=== PATIENT | male | born 1975 | race Caucasian/White ===

== ENCOUNTER 2022-08-13 02:22 | Emergency (ER) | payer SELFPAY ==
[~2022-08-13] VITALS: Ht 175.3 cm; Wt 80.0 kg
[2022-08-13 03:32] LABS: BASOPHILS % 0.3 % (0.0-2.0); HEMATOCRIT. 43.2 % (42.0-52.0); HEMOGLOBIN. 14.6 g/dL (14.0-18.0); LYMPHOCYTES % 43.4 % (20.0-50.0); MEAN CORPUSCULAR HEMOGLOBIN 31.1 pg (28.0-32.0); MEAN CORPUSCULAR VOLUME 92.3 fL (80.0-94.0); MEAN PLATELET VOLUME 7.8 fl (7.4-10.4); MONOCYTES % 10.2 % (2.0-8.0); NEUTROPHILS % 43.1 % (40.0-76.0); PLATELET 259 x1000/uL (130-400); RED BLOOD CELL COUNT 4.68 mill/uL (4.7-6.1); RED CELL DISTRIBUTION WIDTH 14.3 % (11.6-14.6)
[2022-08-13 03:39] LABS: CHLORIDE 106 mEq/L (98-107)
[2022-08-13 03:47] LABS: ETHANOL BLOOD 254 mg/dL
[2022-08-13 04:58] VITALS: BP 133/85
== END 2022-08-13 04:59 | disposition home or self-care (01) ==
LOC: ER 02:22
DX: F10.129 Alcohol abuse with intoxication, unspecified (principal); Y90.8 Blood alcohol level of 240 mg/100 ml or more
CPT/HCPCS: 36415; 80053; 80320; 85025; 99283; G0480

== ENCOUNTER 2023-04-06 00:43 | Emergency (ER) | payer MEDICAID ==
[~2023-04-06] VITALS: Ht 170.2 cm; Wt 82.0 kg
[2023-04-06 02:50] VITALS: BP 112/62
== END 2023-04-06 02:59 | disposition home or self-care (01) ==
LOC: ER 00:43
DX: G93.40 Encephalopathy, unspecified (principal); T51.0X1A Toxic effect of ethanol, accidental (unintentional), initial encounter; Y92.9 Unspecified place or not applicable
CPT/HCPCS: 99283

== ENCOUNTER 2024-10-18 16:25 | Inpatient (IN) | payer SELFPAY ==
[~2024-10-18] VITALS: Ht 177.8 cm; Wt 91.6 kg
[~2024-10-18 16:25] MED LIST: ZOLPIDEM TARTRATE 5MG TABLET PO PRN
[2024-10-18] MEDS: ASPIRIN 81MG TABLET PO ONE (17:29)
[2024-10-18 17:34] LABS: BASOPHILS % 0.6 % (0.0-2.0); HEMATOCRIT. 40.5 % (42.0-52.0); HEMOGLOBIN. 13.8 g/dL (14.0-18.0); LYMPHOCYTES % 44.4 % (20.0-50.0); MEAN CORPUSCULAR HEMOGLOBIN 32.1 pg (28.0-32.0); MEAN CORPUSCULAR VOLUME 94.4 fL (80.0-94.0); MEAN PLATELET VOLUME 8.3 fl (7.4-10.4); MONOCYTES % 9.7 % (2.0-8.0); NEUTROPHILS % 41.3 % (40.0-76.0); PLATELET 250 x1000/uL (130-400); RED BLOOD CELL COUNT 4.29 mill/uL (4.7-6.1); RED CELL DISTRIBUTION WIDTH 14.2 % (11.6-14.6); WHITE BLOOD COUNT 4.5 x1000/uL (4.5-11.0)
[2024-10-18 17:45] LABS: CHLORIDE 107 mEq/L (98-107); POTASSIUM 3.9 mEq/L (3.5-5.1); SODIUM 144 mEq/L (136-145)
[2024-10-18 17:46] LABS: CARBON DIOXIDE 25 mEq/L (21-32)
[2024-10-18 17:47] LABS: CALCIUM 8.8 mg/dL (8.7-10.4)
[2024-10-18 17:51] LABS: CREATININE 0.9 mg/dL (0.6-1.3); GLUCOSE 109 mg/dL (70-105); UREA NITROGEN BLOOD 14 mg/dL (9-23)
[2024-10-18 17:52] LABS: ETHANOL BLOOD 298 mg/dL (<10)
[2024-10-18 17:54] LABS: TROPONIN I HIGH SENSITIVITY < 4 ng/L (3.0-53)
[2024-10-18 21:29] LABS: TROPONIN I HIGH SENSITIVITY < 4 ng/L (3.0-53)
[2024-10-18] MEDS ORDERED: ONDANSETRON HCL 4MG/2ML INJ IV PRN (23:00)
[2024-10-18] MEDS ORDERED: KETOROLAC 15MG/ML VIAL IV PRN (23:00)
[2024-10-18] MEDS ORDERED: GUAIFENESIN 200MG/10ML SUGAR FREE UDC PO PRN (23:00)
[2024-10-18] MEDS ORDERED: NITROGLYCERIN 0.4MG TABLET SL SL PRN (23:00)
[2024-10-18] MEDS ORDERED: DOCUSATE SODIUM 100MG CAPSULE PO PRN (23:00)
[2024-10-18] MEDS ORDERED: ACETAMINOPHEN 325MG TABLET PO PRN ×2 (23:00)
[2024-10-18] MEDS ORDERED: CLONIDINE 0.1MG TABLET PO PRN (23:00)
[2024-10-18] MEDS ORDERED: MAGNESIUM/ALUMINUM HYDROXIDE/SIMETHICONE 30ML UDC PO PRN (23:00)
[2024-10-18] MEDS ORDERED: IPRATROPIUM/ALBUTEROL 0.5-3(2.5)MG/3ML NEB NEB PRN (23:00)
[2024-10-19 00:12] LABS: IRON 145 ug/dL (65-175); TRIGLYCERIDE 557 mg/dL (0-150)
[2024-10-19 00:13] LABS: LDL CHOLESTEROL 111 mg/dL (5-100)
[2024-10-19 00:14] LABS: CHOLESTEROL 218 mg/dL (<200); HDL CHOLESTEROL 68 mg/dL (>55)
[2024-10-19 00:15] LABS: TOTAL IRON BINDING CAPACITY 103 ug/dl (250-425)
[2024-10-19 00:17] LABS: FOLIC ACID (FOLATE) SERUM 5.27 ng/mL (>5.38); VITAMIN B12 SERUM 338 pg/mL (211-911)
[2024-10-19 00:18] LABS: T4 FREE 1.51 ng/dL (0.89-1.76)
[2024-10-19 00:19] LABS: THYROID STIMULATING HORMONE 0.17 uIU/mL (0.55-4.78)
[2024-10-19] MEDS: MVI, ADULT NO.1 10 ML, FOLIC ACID 1 MG, THIAMINE HCL 100 MG in SODIUM CHLORIDE 0.9% 1,0... IV NR (01:21)
[2024-10-19 08:00] VITALS: BP 137/86; PULSE 89; RESP 18; TEMP 37.00296; O2SAT 97
[2024-10-19 08:17] LABS: BASOPHILS % 0.6 % (0.0-2.0); EOSINOPHILS % 2.5 % (0.0-5.0); HEMATOCRIT. 37.1 % (42.0-52.0); HEMOGLOBIN. 12.2 g/dL (14.0-18.0); LYMPHOCYTES % 29.7 % (20.0-50.0); MEAN CORPUSCULAR HEMOGLOBIN 31.3 pg (28.0-32.0); MEAN CORPUSCULAR HGB CONC 32.9 g/dL (31.0-37.0); MEAN PLATELET VOLUME 8.1 fl (7.4-10.4); MONOCYTES % 8.1 % (2.0-8.0); NEUTROPHILS % 59.1 % (40.0-76.0); PLATELET 212 x1000/uL (130-400); RED BLOOD CELL COUNT 3.91 mill/uL (4.7-6.1); RED CELL DISTRIBUTION WIDTH 14.9 % (11.6-14.6); WHITE BLOOD COUNT 4.5 x1000/uL (4.5-11.0)
[2024-10-19 08:36] LABS: CHLORIDE 116 mEq/L (98-107); SODIUM 147 mEq/L (136-145)
[2024-10-19 08:38] LABS: CARBON DIOXIDE 20 mEq/L (21-32)
[2024-10-19 08:43] LABS: GLUCOSE 68 mg/dL (70-105)
[2024-10-19 08:44] LABS: CREATINE KINASE MB FRACTION 0.6 ng/mL (0.5-3.6); UREA NITROGEN BLOOD 9 mg/dL (9-23)
[2024-10-19 08:45] LABS: ALANINE AMINOTRANSFERASE 27 IU/L (10-49); ALBUMIN 2.7 g/dL (3.2-4.8)
[2024-10-19 08:46] LABS: ASPARTATE AMINOTRANSFERASE 26 IU/L (<34); BILIRUBIN TOTAL 0.3 mg/dL (0.1-1.0); PHOSPHORUS 1.6 mg/dL (2.5-4.9)
[2024-10-19 08:47] LABS: CREATINE KINASE 79 IU/L (46-171)
[2024-10-19 09:02] LABS: CREATININE 0.4 mg/dL (0.6-1.3)
[2024-10-19 09:03] LABS: PROTEIN TOTAL 4.4 g/dL (6.0-8.3)
[2024-10-19 09:07] LABS: TROPONIN I HIGH SENSITIVITY < 4 ng/L (3.0-53)
[2024-10-19] MEDS: ENOXAPARIN 40MG/0.4ML SYR SUBCUT SCH (09:30)
[2024-10-19] MEDS: ASPIRIN 81MG EC TABLET PO SCH (09:30)
[2024-10-19] MEDS: FAMOTIDINE 20MG TABLET PO SCH (09:30)
[2024-10-19 12:00] VITALS: BP 150/98; PULSE 87; RESP 18; TEMP 37.11408; O2SAT 98
[2024-10-19 16:00] VITALS: BP 154/101; PULSE 78; RESP 16; TEMP 36.83628; O2SAT 97
[2024-10-19 16:24] LABS: CREATINE KINASE 112 IU/L (46-171); CREATINE KINASE MB FRACTION 1.2 ng/mL (0.5-3.6)
[2024-10-19 16:34] LABS: TROPONIN I HIGH SENSITIVITY < 4 ng/L (3.0-53)
[2024-10-19 20:00] VITALS: BP 148/95; PULSE 78; RESP 18; TEMP 36.55848; O2SAT 99
[2024-10-19] MEDS: POTASSIUM CHLORIDE 20MEQ TABLET SR PO NR (23:01)
[2024-10-20] VITALS: BP 152/93; PULSE 75; RESP 18; TEMP 36.61404; O2SAT 98
[2024-10-20] MEDS: POTASSIUM PHOSPHATE 30 MMOL in SODIUM CHLORIDE 0.9% 500 ML IV NR (00:10)
[2024-10-20] MEDS: MAGNESIUM 4 G PREMIX 100 ML IV NR (00:14)
[2024-10-20 04:00] VITALS: BP 150/98; PULSE 80; RESP 18; TEMP 36.3918; O2SAT 98
[2024-10-20 07:42] LABS: CHLORIDE 103 mEq/L (98-107); POTASSIUM 4.6 mEq/L (3.5-5.1); SODIUM 137 mEq/L (136-145)
[2024-10-20 07:43] LABS: CARBON DIOXIDE 26 mEq/L (21-32)
[2024-10-20 07:48] LABS: CREATININE 0.8 mg/dL (0.6-1.3); GLUCOSE 101 mg/dL (70-105)
[2024-10-20 07:49] LABS: UREA NITROGEN BLOOD 11 mg/dL (9-23)
[2024-10-20 07:50] LABS: ALANINE AMINOTRANSFERASE 37 IU/L (10-49); ALBUMIN 4.4 g/dL (3.2-4.8); ASPARTATE AMINOTRANSFERASE 33 IU/L (<34)
[2024-10-20 07:51] LABS: BILIRUBIN TOTAL 0.8 mg/dL (0.1-1.0); PHOSPHORUS 4.2 mg/dL (2.5-4.9); PROTEIN TOTAL 7.3 g/dL (6.0-8.3)
[2024-10-20 08:00] VITALS: BP 136/88; PULSE 71; RESP 18; TEMP 36.83628; O2SAT 96
[2024-10-20 08:49] LABS: BASOPHILS % 0.6 % (0.0-2.0); EOSINOPHILS % 2.9 % (0.0-5.0); LYMPHOCYTES % 28.7 % (20.0-50.0); MEAN CORPUSCULAR HGB CONC 33.2 g/dL (31.0-37.0); MEAN CORPUSCULAR VOLUME 93.5 fL (80.0-94.0); MONOCYTES % 10.7 % (2.0-8.0); NEUTROPHILS % 57.1 % (40.0-76.0); PLATELET 270 x1000/uL (130-400); RED BLOOD CELL COUNT 4.91 mill/uL (4.7-6.1); RED CELL DISTRIBUTION WIDTH 14.2 % (11.6-14.6); WHITE BLOOD COUNT 6.3 x1000/uL (4.5-11.0)
[2024-10-20 09:36] LABS: HEMATOCRIT. 45.9 % (42.0-52.0); HEMOGLOBIN. 15.2 g/dL (14.0-18.0)
[2024-10-20] MEDS ORDERED: FOLI-43 MT (11:59)
[2024-10-20] MEDS ORDERED: THIA50TA12 MT (11:59)
[2024-10-20] MEDS ORDERED: MULT-1021 MT (11:59)
[2024-10-20 12:00] VITALS: BP 122/77; PULSE 97; RESP 18; TEMP 36.33624; O2SAT 99
[2024-10-20 13:52] VITALS: BP 146/97; PULSE 77; TEMP 97.7; O2SAT 99
== END 2024-10-20 14:45 | disposition home or self-care (01) | DRG 241 ==
LOC: ER 16:25 → EDBEDREQ 17:27 → EDBEDREQTM 21:52 → EDBEDREQ 21:52 → 5WST 10-19 00:06
PROVIDERS: ADMIT Internal Medicine; ATTEND Internal Medicine
DX: K29.70 Gastritis, unspecified, without bleeding (principal); F10.129 Alcohol abuse with intoxication, unspecified; M25.512 Pain in left shoulder; T51.0X1A Toxic effect of ethanol, accidental (unintentional), initial encounter; Z79.899 Other long term (current) drug therapy; W18.39XA Other fall on same level, initial encounter; Y93.89 Activity, other specified; Y92.89 Other specified places as the place of occurrence of the external cause; Y99.8 Other external cause status
CPT/HCPCS: 36415; 71045; 73030; 80048; 80053; 80061; 80320; 82550; 82553; 82607; 82746; 83036; 83540; 83550; 83735; 83880; 84100; 84439; 84443; 84484; 85025; 93005; 93970; 99285; J1650; J3411; J3475; J3490; J7030; J7040; G0480

== ENCOUNTER 2025-08-13 23:20 | Inpatient (IN) | payer SELFPAY ==
[~2025-08-13] VITALS: Ht 152.4 cm; Wt 75.7 kg
[~2025-08-13 23:20] MED LIST changes: +FOLI-43 MT; +MULT-1021 MT; +THIA50TA12 MT; -ZOLPIDEM TARTRATE 5MG TABLET PO PRN
[2025-08-13 23:24] VITALS: O2SAT 99
[2025-08-13] MEDS: SODIUM CHLORIDE 0.9% 1,000 ML IV ONE (23:45)
[2025-08-14 00:06] LABS: BASOPHILS % 0.4 % (0.0-2.0); EOSINOPHILS % 3.1 % (0.0-5.0); HEMATOCRIT. 41.7 % (42.0-52.0); HEMOGLOBIN. 13.6 g/dL (14.0-18.0); LYMPHOCYTES % 37.7 % (20.0-50.0); MEAN PLATELET VOLUME 8.2 fl (7.4-10.4); MONOCYTES % 12.1 % (2.0-8.0); NEUTROPHILS % 46.7 % (40.0-76.0); PLATELET 217 x1000/uL (130-400); RED BLOOD CELL COUNT 4.43 mill/uL (4.7-6.1); RED CELL DISTRIBUTION WIDTH 14.1 % (11.6-14.6)
[2025-08-14 00:16] LABS: CREATININE 1.0 mg/dL (0.6-1.3)
[2025-08-14 00:17] LABS: UREA NITROGEN BLOOD 15 mg/dL (9-23)
[2025-08-14 00:18] LABS: ASPARTATE AMINOTRANSFERASE 22 IU/L (<34)
[2025-08-14 00:19] LABS: BILIRUBIN DIRECT < 0.1 mg/dL (<=3.0); BILIRUBIN TOTAL 0.3 mg/dL (0.1-1.0); PROTEIN TOTAL 7.1 g/dL (6.0-8.3)
[2025-08-14 00:22] LABS: CLARITY URINE CLEAR (CLEAR); COLOR URINE YELLOW (YELLOW); GLUCOSE URINE NEGATIVE (NEGATIVE); KETONES URINE NEGATIVE (NEGATIVE); LEUKOCYTE ESTERASE URINE NEGATIVE (NEGATIVE); NITRITE URINE NEGATIVE (NEGATIVE); OCCULT BLOOD URINE NEGATIVE (NEGATIVE); PH URINE 5.5 (4.5-8.0); PROTEIN URINE NEGATIVE (NEGATIVE); SPECIFIC GRAVITY URINE 1.014 (1.005-1.030); UROBILINOGEN URINE 0.2 E.U./dL (0.2-1.0)
[2025-08-14 00:31] LABS: *AMPHETAMINES SCREEN URINE NEGATIVE (NEGATIVE); *BARBITURATES SCREEN URINE NEGATIVE (NEGATIVE); *BENZODIAZEPINES SCREEN URINE NEGATIVE (NEGATIVE); *COCAINE SCREEN URINE NEGATIVE (NEGATIVE); CANNABINOID URINE SCREEN NEGATIVE (NEGATIVE); ECSTASY MDMA SCREEN URINE NEGATIVE (NEGATIVE); METHADONE URINE SCREEN NEGATIVE (NEGATIVE); OPIATES URINE SCREEN NEGATIVE (NEGATIVE); PHENCYCLIDINE URINE SCREEN NEGATIVE (NEGATIVE)
[2025-08-14 01:05] LABS: TROPONIN I HIGH SENSITIVITY < 4 ng/L (3.0-53)
[2025-08-14] MEDS ORDERED: CHLORDIAZEPOXIDE 25MG CAPSULE PO PRN (02:00)
[2025-08-14] MEDS: DEXT 5%/0.9% NACL 500 ML IV ONE (02:00)
[2025-08-14] MEDS ORDERED: ONDANSETRON HCL 4MG/2ML INJ IV PRN (02:00)
[2025-08-14] MEDS ORDERED: ACETAMINOPHEN 325MG TABLET PO PRN ×2 (02:00)
[2025-08-14] MEDS ORDERED: NA PHOS,M-B/NA PHOS,DI-BA ENEMA 118ML PR PRN (02:00)
[2025-08-14] MEDS ORDERED: THIAMINE HCL 100 MG/1 ML 2ML VIAL IM SCH (02:00)
[2025-08-14] MEDS ORDERED: MAGNESIUM/ALUMINUM HYDROXIDE/SIMETHICONE 30ML UDC PO PRN (02:00)
[2025-08-14] MEDS ORDERED: CLONIDINE 0.1MG TABLET PO PRN (02:00)
[2025-08-14 02:19] LABS: TROPONIN I HIGH SENSITIVITY < 4 ng/L (3.0-53)
[2025-08-14] MEDS: FOLIC ACID 1MG TABLET PO SCH (02:56)
[2025-08-14] MEDS: THIAMINE HCL 100MG TABLET ONE (02:57)
[2025-08-14 03:45] VITALS: BP 116/80; PULSE 59; RESP 16; TEMP 36.6404
[2025-08-14] MEDS: MULTIVITAMINS,THER W-MINERALS TABLET PO SCH (05:01)
[2025-08-14 06:34] LABS: CREATININE 0.8 mg/dL (0.6-1.3); LACTATE DEHYDROGENASE 146 IU/L (120-246); UREA NITROGEN BLOOD 11 mg/dL (9-23)
[2025-08-14 06:35] LABS: BASOPHILS % 0.4 % (0.0-2.0); EOSINOPHILS % 4.7 % (0.0-5.0); HEMATOCRIT. 39.9 % (42.0-52.0); HEMOGLOBIN. 13.2 g/dL (14.0-18.0); LYMPHOCYTES % 50.2 % (20.0-50.0); MEAN PLATELET VOLUME 8.8 fl (7.4-10.4); MONOCYTES % 11.6 % (2.0-8.0); NEUTROPHILS % 33.1 % (40.0-76.0); PLATELET 198 x1000/uL (130-400); RED BLOOD CELL COUNT 4.24 mill/uL (4.7-6.1); RED CELL DISTRIBUTION WIDTH 14.6 % (11.6-14.6); TROPONIN I HIGH SENSITIVITY < 4 ng/L (3.0-53)
[2025-08-14 06:44] LABS: FOLIC ACID (FOLATE) SERUM > 20.00 ng/mL (>5.38)
[2025-08-14 06:45] LABS: VITAMIN B12 SERUM 264 pg/mL (211-911)
[2025-08-14 08:00] VITALS: BP 112/81; PULSE 66; RESP 18; TEMP 36.4; O2SAT 97
[2025-08-14 08:23] LABS: PHOSPHORUS 3.3 mg/dL (2.5-4.9)
[2025-08-14] MEDS: ENOXAPARIN 40MG/0.4ML SYR SUBCUT SCH (09:00)
[2025-08-14 12:00] VITALS: BP 117/74; PULSE 69; RESP 18; TEMP 36.4; O2SAT 98
[2025-08-14] MEDS ORDERED: DEXT 5%/0.9% NACL 500 ML IV ONE (12:15)
[2025-08-14 13:57] LABS: TROPONIN I HIGH SENSITIVITY < 4 ng/L (3.0-53)
[2025-08-14] MEDS: DEXT 5%/0.45% NACL 500ML 500 ML IV ONE (14:09)
[2025-08-14 16:00] VITALS: BP 120/64; PULSE 72; RESP 18; TEMP 36.2; O2SAT 98
[2025-08-14 19:04] LABS: TROPONIN I HIGH SENSITIVITY < 4 ng/L (3.0-53)
[2025-08-14 20:00] VITALS: BP 119/54; PULSE 74; RESP 18; TEMP 36.9; O2SAT 98
[2025-08-15] VITALS: BP 124/67; PULSE 76; RESP 19; O2SAT 98
[2025-08-15 04:00] VITALS: BP 119/62; PULSE 77; RESP 20
[2025-08-15 08:00] VITALS: BP 133/70; PULSE 90; RESP 20; TEMP 36.7; O2SAT 99
[2025-08-15] MEDS: LORAZEPAM 1MG TABLET PO PRN (08:33)
[2025-08-15] MEDS ORDERED: THIAMINE HCL 100 MG/1 ML 2ML VIAL IM SCH (09:00)
[2025-08-15 12:00] VITALS: BP 120/72; PULSE 85; RESP 20; TEMP 36.4; O2SAT 99
[2025-08-15 16:00] VITALS: BP 122/68; PULSE 87; RESP 20; TEMP 36.6; O2SAT 99
[2025-08-15 17:29] VITALS: BP 120/72; PULSE 88; RESP 20; TEMP 97.6
[2025-08-17] MEDS ORDERED: THIAMINE HCL 100MG TABLET PO SCH (09:00)
== END 2025-08-15 19:10 | disposition home or self-care (01) | DRG 48 ==
LOC: ER 23:20 → 8WST 08-14 00:59 → EDBEDREQSVC 08-14 01:04 → EDBEDREQ 08-14 01:04 → EDBEDREQTM 08-14 01:04 → EDBEDREQDT 08-14 01:04 → ENRESERV 08-14 01:41
PROVIDERS: ADMIT Internal Medicine; ATTEND Internal Medicine
DX: G90.89 Other disorders of autonomic nervous system (principal); D64.9 Anemia, unspecified; F10.229 Alcohol dependence with intoxication, unspecified; E87.6 Hypokalemia; F41.9 Anxiety disorder, unspecified; Z79.899 Other long term (current) drug therapy
CPT/HCPCS: 36415; 71045; 80048; 80076; 80305; 80320; 81003; 82607; 82728; 82746; 83540; 83550; 83615; 83735; 84100; 84484; 85025; 85044; 85379; 93005; 93970; 99285; A6449; J1650; J7030; G0480